=== PATIENT | male | born 1995 | race Caucasian/White ===

== ENCOUNTER 2016-08-29 22:12 | Emergency (ER) | payer BC, SELFPAY ==
[2016-08-29] MEDS ORDERED: Bacitracin Oint 1 GM U/D Packet TOP ONE (22:31)
[2016-08-29] MEDS ORDERED: Diphtheria,Pertussis(Acell),Tetanus Vaccine 0.5 ML Syringe IM ONE (22:32)
[2016-08-29] MEDS ORDERED: Ibuprofen 800 MG Tab PO ONE (22:32)
--- NOTE | 2016-08-29 22:36 | EDM.PDOC ---
ED HPI Skin/Rash - General Chief Complaint: Skin Complaint Stated Complaint: POSSIBLE FROSTBITE/STOMACH Time Seen by Provider: 08/29/16 22:26 - History of Present Illness INITIAL COMMENTS - FREE TEXT/NARRATIVE: HISTORY AND PHYSICAL: History of present illness: The patient is a 20-year-old male with no stated medical problems and was unsure of his last tetanus shot and presents with redness and pain to his intra- abdominal that he thinks might be frostbite that he got yesterday while at work. According to the patient he was out in the elements and he was wearing coveralls that did not Z. completely closed do to his protuberant abdomen and he did not notice any pain or issues with it until today. He's had no issues with vomiting diarrhea internal abdominal pain fevers chills or other exposed areas with rashes. He states that the skin is what discomforting and he has not taken anything [id number] for the pain. Review of systems: As per history of present illness and below otherwise all systems reviewed and negative. Past medical history: As per history of present illness and as reviewed below otherwise noncontributory. Surgical history: As per history of present illness and as reviewed below otherwise noncontributory. Social history: No reported history of drug or alcohol abuse. Family history: As per history of present illness and as reviewed below otherwise noncontributory. Physical exam: General: Well-developed well-nourished man who is overweight and nontoxic vital signs are stable and reviewed by me HEENT: Atraumatic, normocephalic, negative for conjunctival pallor or scleral icterus, mucous membranes moist, throat clear, neck supple, nontender, trachea midline. Lungs: Clear to auscultation, breath sounds equal bilaterally, chest nontender. Heart: S1S2, regular, negative for clicks, rubs, or JVD. Abdomen: Soft, nondistended, there is an oval area of erythema which is well- defined and without any blisters on the anterior abdominal tenderness which does not extend above the umbilicus or to the groin area. There is soft tissue tenderness in this region but no deep abdominal tenderness rebound or guarding. Negative for masses or hepatosplenomegaly. NABS Skin: Normal turgor and no other areas of rashes or lesions are seen grossly Genitourinary: Deferred. Rectal: Deferred. Extremities: Atraumatic, negative for cords or calf pain. Neurovascular unremarkable. Neuro: Awake, alert, oriented. Cranial nerves II through XII unremarkable. Cerebellum unremarkable. Motor and sensory unremarkable throughout. Exam nonfocal. Diagnostics: none Therapeutics: Tdap, bacitracin and Motrin I've advised the patient that per our plastic surgeon she does not use Silvadene but uses bacitracin or Neosporin to keep the areas moist and I will give him her name for referral as well as primary care. I've advised using nonsteroidals [id number] for pain and to keep the area protected Impression: Skin lesion anterior abdominal wall, frostbite Definitive disposition and diagnosis as appropriate pending reevaluation and review of above. - Related Data Allergies Allergy/AdvReac Type Severity Reaction Status Date / Time No Known Allergies Allergy Verified 08/29/16 22:20 Home Meds: Ambulatory Orders Medication Instructions Recorded Confirmed . [No Known Home Meds] 06/21/15 06/21/15 Past Medical History - Past Health History Medical/Surgical History: Denies Medical/Surgical History - Infectious Disease History Infectious Disease History: Reports: None Social & Family History - Family History Family Medical History: Noncontributory - Tobacco Use Smoking Status *Q: Never Smoker Second Hand Smoke Exposure: No - Recreational Drug Use Recreational Drug Use: No ED ROS GENERAL - Review of Systems Review Of Systems: ROS reveals no pertinent complaints other than HPI. ED EXAM, SKIN/RASH Exam: See Below (See dictation) Course - Vital Signs Last Recorded V/S: Last Vital Signs Temp 37.4 C 08/29/16 22:20 Pulse 92 08/29/16 22:20 Resp 18 08/29/16 22:20 BP 149/72 H 08/29/16 22:20 Pulse Ox 97 08/29/16 22:20 - Orders/Labs/Meds Orders: Active Orders 24 hr Category Date Time Status Vaccines to be Administered [RC] PER UNIT ROUTINE Care 08/29/16 22:32 Ordered Bacitracin [Bacitracin Oint 1 GM] Med 08/29/16 22:31 Once 5 dose TOP ONETIME ONE Diphth,Pertuss(Acell),Tet Vac [Adacel] Med 08/29/16 22:32 Once 0.5 ml IM .ONCE ONE Ibuprofen [Motrin] Med 08/29/16 22:32 Once 800 mg PO ONETIME ONE Departure - Departure Time of Disposition: 22:35 Disposition: Home, Self-Care 01 Condition: good Clinical Impression: Frostbite Qualifiers: Encounter type: initial encounter Qualified Code(s): T33.90XA - Superficial frostbite of unspecified sites, initial encounter Forms: ED Department Discharge Additional Instructions: The following information is given to patients seen in the emergency department who are being discharged to home. This information is to outline your options for follow-up care. We provide all patients seen in our emergency department with a follow-up referral. The need for follow-up, as well as the timing and circumstances, are variable depending upon the specifics of your emergency department visit. If you don't have a primary care physician on staff, we will provide you with a referral. We always advise you to contact your personal physician following an emergency department visit to inform them of the circumstance of the visit and for follow-up with them and/or the need for any referrals to a consulting specialist. The emergency department will also refer you to a specialist when appropriate. This referral assures that you have the opportunity for followup care with a specialist. All of these measure are taken in an effort to provide you with optimal care, which includes your followup. Under all circumstances we always encourage you to contact your private physician who remains a resource for coordinating your care. When calling for followup care, please make the office aware that this follow-up is from your recent emergency room visit. If for any reason you are refused follow-up, please contact the [facility] emergency department at and ask to speak to the emergency department charge nurse. [facility] Primary care- Internal Medicine and Family [facility] [address] [place] [id number] [facility] Specialty clinic-Plastic Surgery and Hand Surgery Professional Building [address] [place] [id number] Please keep area clean and dry and apply bacitracin or Neosporin for the next 7 days twice a day. Please call and followup with primary care and/or our plastic surgeon over the next few days. Return to ER as needed and as discussed. If any blisters start forming or the skin starts to peel please do not aggravated and please keep the area as protected as you can when outside - My Orders Last 24 Hours: My Active Orders 08/29/16 22:31 Bacitracin [Bacitracin Oint 1 GM] 5 dose TOP ONETIME ONE 08/29/16 22:32 Vaccines to be Administered [RC] PER UNIT ROUTINE Diphth,Pertuss(Acell),Tet Vac [Adacel] 0.5 ml IM .ONCE ONE Ibuprofen [Motrin] 800 mg PO ONETIME ONE - Assessment/Plan Last 24 Hours: My Active Orders 08/29/16 22:31 Bacitracin [Bacitracin Oint 1 GM] 5 dose TOP ONETIME ONE 08/29/16 22:32 Vaccines to be Administered [RC] PER UNIT ROUTINE Diphth,Pertuss(Acell),Tet Vac [Adacel] 0.5 ml IM .ONCE ONE Ibuprofen [Motrin] 800 mg PO ONETIME ONE
[2016-08-29 23:29] VITALS: BP 130/70
== END 2016-08-29 23:00 | disposition home or self-care (01) ==
LOC: MW.ED 22:12
DX: T33.90XA Superficial frostbite of unspecified sites, initial encounter (principal); Z23 Encounter for immunization
CPT/HCPCS: 90471; 90715; 99283; A9270

== ENCOUNTER → 2016-09-04 | Outpatient (CLI) | payer BC, SELFPAY ==
[2016-09-04 15:58] LABS: CHLORIDE,CL 109 mmol/L (98-110); SODIUM,NA 141 mmol/L (136-146)
== END ==
LOC: MW.CHFP 14:53
PROVIDERS: ATTEND Physician Assistant
DX: E66.01 Morbid (severe) obesity due to excess calories (principal)
CPT/HCPCS: 36415; 80048

== ENCOUNTER 2022-12-04 01:17 | Emergency (ER) | payer BC ==
[2022-12-04] MEDS ORDERED: Ketorolac 30 MG/ML SDV IVPUSH ONE (01:32)
[2022-12-04] MEDS ORDERED: Sodium Chloride 0.9% 1,000 ML IV SCH (01:45)
[2022-12-04 01:58] LABS: BASOPHILS PERCENT AUTO 0.1 % (0.0-1.5); EOSINOPHILS PERCENT AUTO 0.1 % (0.0-7.0); HEMATOCRIT 43.7 % (38.0-50.0); LYMPHOCYTES ABSOLUTE AUTO 0.8 K/uL (0.6-2.4); LYMPHOCYTES PERCENT AUTO 11.6 % (16.0-40.0); MEAN CORPUSCULAR HEMOGLOBIN 29.1 pg (27.0-32.0); MEAN CORPUSCULAR HGB CONC 34.3 g/dL (31.0-37.0); MEAN CORPUSCULAR VOLUME 84.7 fL (80.0-98.0); MONOCYTES ABSOLUTE AUTO 0.5 K/uL (0.0-0.8); NEUTROPHILS ABSOLUTE AUTO 5.9 K/uL (1.4-5.7); NEUTROPHILS PERCENT AUTO 81.2 % (48.0-80.0); NRBC ABSOLUTE 0 K/uL; PLATELET COUNT,PLT 192 K/uL (150-400); RED BLOOD CELL COUNT 5.16 M/uL (4.50-5.90); WHITE BLOOD CELL COUNT,WBC 7.27 K/uL (4.0-11.0)
[2022-12-04 02:33] LABS: ALANINE AMINOTRANSFERASE,ALT 179 IU/L (14-63); ALBUMIN 3.8 g/dL (3.4-5.0); ALKALINE PHOSPHATASE 65 U/L (46-116); ASPARTATE AMNIOTRANSFERASE,AST 89 IU/L (15-37); BILIRUBIN TOTAL 1.1 mg/dL (0.2-1.0); BLOOD UREA NITROGEN,BUN 13 mg/dL (7.0-18.0); CALCIUM 8.5 mg/dL (8.5-10.1); CARBON DIOXIDE,CO2 22.7 mmol/L (21.0-32.0); CREATININE 1.3 mg/dL (0.8-1.3); GLUCOSE RANDOM 117 mg/dL (74-106); POTASSIUM,K 3.7 mmol/L (3.5-5.1); PROTEIN TOTAL,TP 7.6 g/dL (6.4-8.2); SODIUM,NA 135 mmol/L (136-148)
[2022-12-04 02:54] LABS: CHLORIDE,CL 101 mmol/L (98-107)
[2022-12-04 02:55] LABS: ESTIMATED GFR 78 mL/min (>60)
[2022-12-04 03:11] VITALS: BP 150/70; PULSE 95
== END 2022-12-04 03:11 | disposition home or self-care (01) ==
LOC: MW.ED 01:17
DX: R50.9 Fever, unspecified (principal)
CPT/HCPCS: 36415; 71045; 80053; 85025; 86308; 87651; 96361; 96374; 99285; J1885; J7030

== ENCOUNTER 2024-06-13 23:50 | Emergency (ER) | payer SELFPAY ==
[2024-06-14 03:10] VITALS: BP 129/81; PULSE 84
== END 2024-06-14 03:00 | disposition home or self-care (01) ==
LOC: MW.ED 23:50
DX: I87.2 Venous insufficiency (chronic) (peripheral) (principal); Z79.84 Long term (current) use of oral hypoglycemic drugs
CPT/HCPCS: 93971-26-LT; 93971-LT; 99283